=== PATIENT | female | born 1965 | race Caucasian/White ===

== ENCOUNTER 2019-09-13 13:48 | Observation (INO) ==
--- NOTE | 2019-09-13 13:51 | Emergency Department Note ---
ED Disposition Clinical Impression: Unstable angina Disposition: Admitted as Observation Condition on Discharge: Fair - Critical Care Critical Care Time: No Attestation: On , the high probability of a clinically significant, sudden or life threatening deterioration of the following system(s) required my full and direct attention, intervention and personal management. The time I documented below is in addition to time spent performing reported procedures but includes the following listed in this critical care notation. Medical Decision Making - Sebastián Inquiry Pt receiving controlled substance: No Vital Signs: 09/13/19 13:48 Temperature 98.2 F Temperature Source Oral Pulse Rate [Right Brachial] 87 Respiratory Rate 16 Blood Pressure [Right Arm] 123/78 Blood Pressure Mean [Right Arm] 93 Blood Pressure Source [Right Arm] Automatic Cuff Blood Pressure Position [Right Arm] Sitting 02 Sat by Pulse Oximetry 98 Oxygen Delivery Method Room Air - Lab Data Lab Results 09/13/19 13:52: WBC 7.4, RBC 5.13, Hgb 15.6, Hct 47.9 H, MCV 93.3, MCH 30.4, MCHC 32.6, RDW 12.6, Plt Count 453 H, MPV 8.1, Neut % (Auto) 63.5, Lymph % (Auto) 28.7, [place] % (Auto) 4.6, Eos % (Auto) 2.4, Baso % (Auto) 0.6, Neut # (Auto) 4.7, Lymph # (Auto) 2.1, [place] # (Auto) 0.3, Eos # (Auto) 0.2, Baso # (Auto) 0.1 09/13/19 13:52: Sodium 141, Potassium 3.5, Chloride 102, Carbon Dioxide 28, Anion Gap 14.5, BUN 7, Creatinine 0.82, Estimated Creat Clear 70, Estimated GFR 73, Est GFR ( Amer) 88, Glucose 103, Calcium 9.1, Troponin I 0.02 Result diagrams: 09/13/19 13:52 09/13/19 13:52 Orders (Tests/Meds): ED MEDICATIONS Generic Name Dose Route Start Last Admin Trade Name Freq PRN Reason Stop Dose Admin Fentanyl Citrate 50 mcg 09/13/19 14:07 Fentanyl 100mcg/2ml Vial IV 09/14/19 14:08 Q3MINP PRN Moderate to Severe Pain Fentanyl Citrate 25 mcg 09/13/19 14:07 Fentanyl 100mcg/2ml Vial IV 09/14/19 14:08 Q3MINP PRN Moderate to Severe Pain Flumazenil 0.2 mg 09/13/19 14:07 Romazicon 0.1mg/Ml 5ml Vial IV 09/13/19 23:00 NEEDED PRN Sedation Heparin Sodium (Porcine) 10,000 unit 09/13/19 14:07 Heparin 1,000 Units/Ml 10ml Vial (Patient Care Representative) IV 09/13/19 18:08 NEEDED PRN Emergency Box Soap Chipper Sodium Chloride 1,000 mls @ 25 mls/hr 09/13/19 14:15 Sod Chlor 0.9% 1000ml Bag IV 09/14/19 14:08 .Q25H JERRICA Midazolam HCl 1 mg 09/13/19 14:07 Midazolam 2mg/2ml Vial IV 09/14/19 14:08 Q3MINP PRN Sedation Midazolam HCl 1 mg 09/13/19 14:07 Midazolam 1mg/Ml 5ml Vial IV 09/14/19 14:08 Q3MINP PRN Sedation Naloxone HCl 0.4 mg 09/13/19 14:07 Narcan 0.4mg/Ml Vial IV 09/14/19 14:08 Q5MINP PRN Decreased Respirations Nitroglycerin 800 mcg 09/13/19 14:07 Nitroglycerin 800mcg/8ml Syr (Patient Care Representative) IV 09/14/19 14:08 NEEDED PRN Emergency Box Soap Chipper Discontinued Medications Generic Name Dose Route Start Last Admin Trade Name Freq PRN Reason Stop Dose Admin Diphenhydramine HCl 50 mg 09/13/19 14:07 Benadryl 50mg/1ml Vial IV 09/13/19 14:08 ONCE ONE Heparin Sodium/Sodium Chloride 3,000 unit 09/13/19 14:07 Heparin 1000 Units/500ml Ns (Patient Care Representative) IV 09/13/19 14:08 ONCE ONE Lidocaine HCl 20 ml 09/13/19 14:07 Lidocaine 1% 10ml Mdv IJ 09/13/19 14:08 ONCE ONE Lidocaine HCl 20 ml 09/13/19 14:07 Lidocaine 1% 5ml Pf Vial IJ 09/13/19 14:08 ONCE ONE Nitroglycerin 1 gm 09/13/19 13:55 09/13/19 13:59 Nitroglycerin 1 Inch Oint Udp TD 09/13/19 13:56 1 gm ONCE ONE Administration Verapamil HCl 2.5 mg 09/13/19 14:07 Verapamil 2.5mg/Ml 2ml Vial IV 09/13/19 14:08 ONCE ONE ORDERS Category Date Time Status Troponin I Q3H Lab 09/13/19 17:00 Ordered Troponin I Q3H Lab 09/13/19 20:00 Ordered - ECG Data Tracing #1 EKG interpreted by Riley Blevins MD: Rhythm: sinus Rate: 72 [place]: normal Ectopy: none Conduction: normal ST Segment Changes: none T Wave Changes: Inverted inferior, anterior, and lateral Q Waves: none No evidence of acute ischemia or injury Baseline artifact and wander present, but I consider the EKG adequate for accurate interpretation. - Physician Consults Physician Consulted: Lamin Time: 14:44 Reason -: Admission Comment/Response: Agrees to admit the patient to the hospital. We discussed the patient's clinical information, including history, exam, laboratory and radio logy results and ED course. Per hospital procedure, I will write temporary bridge inpatient orders on the patient. Specific orders requested by the admitting physician: Per cardiology - KELSIE Score for Non-Stemi Age of Patient: 50-59 years old Heart Rate: 70-89 bpm Systolic Blood Pressure: 120-139 mmhg CHF Killip Class: I-No CHF General Adult HPI - General Stated complaint: Chest Pain Time Seen by Provider: 09/13/19 13:50 - History of Present Illness HPI narrative: The patient is brought over by ITZEL Manning, for Dr. Wilson from the office. She was being seen there for her initial visit for a cardiology consultation today. She was having chest pain when she arrived. An EKG showed inverted T waves diffusely. She is being brought to the emergency department for evaluation and the plan is that she will go to the Patient Care Representative today for a cardiac cath. Her chest pain has now resolved. Nitroglycerin was given in the office. Aspirin has been administered. Hosea requests Nitropaste. She says she has been having chest pains off and on for 3 months. She gets a few a day. They usually last about 20 minutes. Usually brought on by activity and relieved by laying over the bed and taking deep breaths. She gets short of breath. She has chronic nausea, no change with the pain. No radiation. No diaphoresis. She does not have any known heart disease. She is a smoker and has a family history of heart disease. Says she has low blood sugar, no hypertension or hyperlipidemia to her knowledge. - Related Data Home Medications Medication Instructions Recorded Confirmed albuterol sulfate 90 mcg/actuation 1 inh INHALATION Q4-6H PRN 09/13/19 09/13/19 breath activated powder inhaler metoclopramide 5 mg tablet 5 mg PO QAC 09/13/19 09/13/19 omeprazole 40 mg capsule,delayed 40 mg PO DAILY 09/13/19 09/13/19 release ondansetron 4 mg disintegrating 4 mg PO Q8H 09/13/19 09/13/19 tablet ondansetron HCl 4 mg tablet 4 mg PO TID PRN 09/13/19 09/13/19 oxycodone-acetaminophen 7.5 mg-325 1 tab PO Q6H PRN 09/13/19 09/13/19 mg tablet pantoprazole 40 mg tablet,delayed 40 mg PO DAILY 09/13/19 09/13/19 release tizanidine 4 mg capsule 4 mg PO Q8H PRN 09/13/19 09/13/19 Allergies Allergy/AdvReac Type Severity Reaction Status Date / Time No Known Allergies Allergy Verified 09/13/19 13:21 [facility] History - Hepatitis A Screen Attestation statement:: This patient has been screened for Hepatitis A risk factors. I have reviewed the patient's past medical history: Yes - Social History Smoking Status: Current every day smoker # Packs/Day (cigarettes): 1 Alcohol Intake: never Occupational Status: disabled ROS Obtained: Yes All systems reviewed & no additional complaints - Constitutional Constitutional: Denies fever(s) - Cardiovascular Cardiovascular: Reports chest pain - Respiratory Respiratory: Yes dyspnea, Yes dyspnea on exertion - Gastrointestinal Gastrointestingal: Reports: nausea. Denies: vomiting Physical Exam - General General appearance: alert, in no apparent distress - Head Head exam: atraumatic, normocephalic - Eye Eye exam: Present: normal appearance, EOMI - ENT ENT exam: Present: mucous membranes moist - Neck Neck exam: Present: normal inspection, trachea midline - Chest Chest inspection: Present: normal inspection, symmetric chest wall rise - Respiratory Respiratory exam: Present: normal lung sounds bilaterally. Absent: respiratory distress - Cardiovascular Cardiovascular exam: Present: regular rate, normal rhythm, normal heart sounds - Abdominal Exam Abdominal exam: Present: soft. Absent: distention, tenderness - Extremities Exam Extremities exam: Present: normal inspection - Neurological Exam Neurological exam: Present: alert, oriented X3 - Psychiatric Psychiatric exam: Present: normal affect, normal mood - Skin Skin exam: Present: warm, dry
[2019-09-13 14:05] LABS: Basophils # 0.1 K/mm3 (0-0.2); Basophils % 0.6 % (0.1-2.0); Eosinophils # 0.2 K/mm3 (0.0-0.4); Eosinophils % 2.4 % (0.1-12.0); Hematocrit 47.9 % (37.0-47.0); Hemoglobin 15.6 g/dL (12.2-16.2); Lymphocytes # 2.1 K/mm3 (0.7-4.5); Lymphocytes % 28.7 % (10-50); Mean Corpuscular HGB Conc 32.6 g/dL (31.8-35.4); Mean Corpuscular Volume 93.3 fl (81-99); Mean Platelet Volume 8.1 fl (7.4-10.4); Monocytes # 0.3 K/mm3 (0.1-1.0); Monocytes % 4.6 % (1.7-9.3); Neutrophils # 4.7 K/mm3 (1.8-7.8); Neutrophils % 63.5 % (37.0-80.0); Platelet Count 453 K/mm3 (142-424); Red Blood Count 5.13 M/mm3 (4.20-5.40); Red Cell Distribution Width 12.6 % (11.5-17.5); White Blood Count 7.4 K/mm3 (4.8-10.8)
--- NOTE | 2019-09-13 14:06 | Consult Report ---
History of Present Illness Consult date: 09/13/19 Consult reason: chest pain Chief complaint: Chest pain Additional Medical History:: 1. Diabetes mellitus, type II since 1984 2. Tobacco use, 0.5 ppd 3. GERD History of present illness: 54-year-old white female seen in the office today for progressive chest pain over the last 3 months. Patient was noted to have markedly abnormal EKG with ongoing chest pain at the time of the visit and was given nitroglycerin sublingual, aspirin and transported to the ER for stabilization. Patient was noted to have relief of chest pain from the nitroglycerin sublingual in the ER and improvement in EKG changes in the ER as well. Plan was to take her to the cardiac Personal Financial Counselor for urgent catheterization. [facility] History *Have you ever received a pneumonia vaccine?: No *Have you received a flu vaccine this season?: No - *Social History Smoking Status: Current every day smoker # Packs/Day (cigarettes): 1 Alcohol Intake: never *Occupational Status:: disabled *Travel in the last 8 weeks: Inside the [place] [facility] Family Hx:: Unable to obtain Meds Home Medications Medication Instructions Recorded Confirmed Type albuterol sulfate 90 mcg/actuation 1 inh INHALATION Q4-6H PRN 09/13/19 09/13/19 History breath activated powder inhaler metoclopramide 5 mg tablet 5 mg PO QAC 09/13/19 09/13/19 History omeprazole 40 mg capsule,delayed 40 mg PO DAILY 09/13/19 09/13/19 History release ondansetron 4 mg disintegrating 4 mg PO Q8H 09/13/19 09/13/19 History tablet ondansetron HCl 4 mg tablet 4 mg PO TID PRN 09/13/19 09/13/19 History oxycodone-acetaminophen 7.5 mg-325 1 tab PO Q6H PRN 09/13/19 09/13/19 History mg tablet pantoprazole 40 mg tablet,delayed 40 mg PO DAILY 09/13/19 09/13/19 History release tizanidine 4 mg capsule 4 mg PO Q8H PRN 09/13/19 09/13/19 History Allergies Allergy/AdvReac Type Severity Reaction Status Date / Time No Known Allergies Allergy Verified 09/13/19 13:21 Review of Systems - Review of Systems Review of systems:: pertinent systems reviewed and negative unless documented below - *Cardiovascular Reports chest pain, Reports chest pain at rest, Reports chest pain with activity, Reports shortness of breath with activity - *Respiratory Reports shortness of breath with activity - *Gastrointestinal Denies abdominal pain, Denies nausea, Denies vomiting - *Genitourinary Denies blood in urine - *Musculoskeletal Denies joint pain, Denies back pain - *Neurologic Denies fainting, Denies tingling Exam Vital signs and Labs for Last 24 Hours: Temp Pulse Resp BP Pulse Ox 98.2 F 87 16 123/78 98 09/13/19 13:48 09/13/19 13:48 09/13/19 13:48 09/13/19 13:48 09/13/19 13:48 I & O for Last 24 hours: Intake & Output 09/11/19 09/12/19 09/13/19 09/14/19 11:59 11:59 11:59 11:59 Weight 124 lb - *Routine HEENT Exam Head: Present: normocephalic Eye: Present: EOMI, PERRL ENT: Present: mucous membranes moist - *Routine Neck Exam Present: supple. Absent: JVD, carotid bruit - *Routine Respiratory Exam Present: CTA bilaterally. Absent: accessory muscle use, rales, rhonchi, wheezes - *Routine Cardiovascular Exam Present: RRR. Absent: murmur, gallop, rubs - *Routine Abdominal Exam Present: soft. Absent: tenderness, distended, guarding - *Routine Extremities Exam Absent: edema, calf tenderness - *Routine Neurological Exam Present: alert, oriented X3, moving all extremities Assessment and Plan (1) Acute coronary syndrome Current visit: No Status: Acute Category: Medical Code(s): I24.9 - Acute ischemic heart disease, unspecified (2) Diabetes mellitus type 2 in nonobese Current visit: No Status: Acute Category: Medical Code(s): E11.9 - Type 2 diabetes mellitus without complications (3) Tobacco use Current visit: No Status: Acute Category: Medical Code(s): Z72.0 - Tobacco use - Assessment and plan all Dx Assessment and Plan for all problems:: 1. Patient was taken from the office to the ER for stabilization prior to trans portation to the Personal Financial Counselor. Patient was given 1 sublingual nitroglycerin prior to being taken to the ER with improvement in chest discomfort and EKG. EKG initially showed T wave inversion inferiorly and anterolaterally. EKG repeated in the ER shows resolution of inferior EKG changes. Labs pending at this time. This case was discussed with Dr. Wilson who is on his way in to cath the patient. 2. We will obtain an echocardiogram post cardiac catheterization 3. Further recommendations to follow pending above results
--- NOTE | 2019-09-13 14:10 | Electrocardiograph Report ---
APPROVED REPORT Exam: Resting ECG HR:72 bpm ECG Measurements Heart Rate 72 AXES AK 108 P 27 QRSd 70 QRS 70 QT 426 T143 QTc 466 <Conclusion> Sinus rhythm with short AK ST & T wave abnormality, consider inferior ischemia ST & T wave abnormality, consider anterolateral ischemia Prolonged QT Abnormal ECG Electronically signed by : Delon Esteban, 09/13/2019 14:09:31
[2019-09-13 14:26] LABS: Anion Gap 14.5 mEq/L (5-15); Calcium 9.1 mg/dL (8.5-10.1)
--- NOTE | 2019-09-13 21:02 | History & Physical Report ---
*Admission Date: 09/13/19 *Chief complaint: chest pain *History of present illness: this wf was seeing card and had chest pain and was sent to the ed and admitted for unstable angina for cath and admit - he patient is brought over by ITZEL Manning, for Dr. Wilson from the office. She was being seen there for her initial visit for a cardiology consultation today. She was having chest pain when she arrived. An EKG showed inverted T waves diffusely. She is being brought to the emergency department for evaluation and the plan is that she will go to the Health Safety Specialist today for a cardiac cath. Her chest pain has now resolved. Nitroglycerin was given in the office. Aspirin has been administered. Hosea jessica quests Nitropaste. She says she has been having chest pains off and on for 3 months. She gets a few a day. They usually last about 20 minutes. Usually brought on by activity and relieved by laying over the bed and taking deep breaths. She gets short of breath. She has chronic nausea, no change with the pain. No radiation. No diaphoresis. She does not have any known heart disease. She is a smoker and has a family history of heart disease. Says she has low blood sugar, no hypertension or hyperlipidemia to her knowledge. [facility] History I have reviewed the patient's past medical history: Yes Medical History: Reports:: Coronary Artery Disease, Diabetes Mellitus Type 2, Palpitations Denies:: Cancer, MRSA *Have you ever received a pneumonia vaccine?: No (refuses) *Have you received a flu vaccine this season?: No (refuses) Other Surgeries: Yes: Cardiac Catheterization, Cholecystectomy, Hysterectomy- Total Amputation: No Fractures: No - *Social History Smoking Status: Current every day smoker Tobacco Type: cigarettes # Packs/Day (cigarettes): 1 Alcohol Intake: never *Occupational Status:: disabled Housing: house Household Members: none *Travel in the last 8 weeks: Inside the [place] Family Hx:: Unable to obtain Review of Systems - Review of Systems Review of systems:: pertinent systems reviewed and negative unless documented below - Constitutional Denies fever(s) - Eyes Denies change in vision - ENT Denies sore throat - *Cardiovascular Reports chest pain at rest, Reports shortness of breath - *Respiratory Denies cough - *Gastrointestinal Denies abdominal pain - *Genitourinary Denies blood in urine - *Musculoskeletal Denies joint pain - Integumentary/Breasts Denies rash - *Neurologic Denies frequent falls, Denies fainting, Denies tingling - Psychiatric Reports anxiety Meds Home Medications Medication Instructions Recorded Confirmed Type albuterol sulfate 90 mcg/actuation 1 inh INHALATION Q4-6H PRN 09/13/19 09/13/19 History breath activated powder inhaler metoclopramide 5 mg tablet 5 mg PO AC 09/13/19 09/14/19 History ondansetron HCl 4 mg tablet 4 mg PO TID PRN 09/13/19 09/13/19 History oxycodone-acetaminophen 7.5 mg-325 1 tab PO Q6H PRN 09/13/19 09/13/19 History mg tablet pantoprazole 40 mg tablet,delayed 40 mg PO DAILY 09/13/19 09/13/19 History release tizanidine 4 mg capsule 4 mg PO Q8H PRN 09/13/19 09/13/19 History Allergies Allergy/AdvReac Type Severity Reaction Status Date / Time No Known Allergies Allergy Verified 09/13/19 13:21 Exam Vital signs and Labs for Last 24 Hours: Temp Pulse Resp BP Pulse Ox 98.1 F 66 17 181/74 H 97 09/13/19 14:56 09/13/19 18:48 09/13/19 18:48 09/13/19 18:48 09/13/19 19:58 Laboratory Results - last 24 hr 09/13/19 13:52: WBC 7.4, RBC 5.13, Hgb 15.6, Hct 47.9 H, MCV 93.3, MCH 30.4, MCHC 32.6, RDW 12.6, Plt Count 453 H, MPV 8.1, Neut % (Auto) 63.5, Lymph % (Auto) 28.7, [place] % (Auto) 4.6, Eos % (Auto) 2.4, Baso % (Auto) 0.6, Neut # (Auto) 4.7, Lymph # (Auto) 2.1, [place] # (Auto) 0.3, Eos # (Auto) 0.2, Baso # (Auto) 0.1 09/13/19 13:52: Sodium 141, Potassium 3.5, Chloride 102, Carbon Dioxide 28, Anion Gap 14.5, BUN 7, Creatinine 0.82, Estimated Creat Clear 70, Estimated GFR 73, Est GFR ( Amer) 88, Glucose 103, Calcium 9.1, Troponin I 0.02 09/13/19 16:18: Activated Clotting Time 395 H* I & O for Last 24 hours: Intake & Output 09/11/19 09/12/19 09/13/19 09/14/19 11:59 11:59 11:59 11:59 Intake Total 120 / 120 Balance 120 / 120 Weight 123 lb 15.808 oz - Constitutional no acute distress - *Routine HEENT Exam Head: Present: normocephalic Eye: Present: EOMI, PERRL ENT: Present: mucous membranes dry - *Routine Neck Exam Absent: JVD - *Routine Respiratory Exam Present: rhonchi - *Routine Cardiovascular Exam Present: RRR, murmur, S4 - *Routine Abdominal Exam Present: soft - *Routine Extremities Exam Absent: calf tenderness - *Routine Skin Exam Present: intact - *Routine Neurological Exam Present: alert, oriented X3, CN II-XII intact - Routine Psychiatric Exam Present: unable to assess Assessment and Plan (1) Acute coronary syndrome Current visit: No Status: Acute Category: Medical Code(s): I24.9 - Acute ischemic heart disease, unspecified (2) Diabetes mellitus type 2 in nonobese Current visit: No Status: Acute Category: Medical Code(s): E11.9 - Type 2 diabetes mellitus without complications (3) Tobacco use Current visit: No Status: Acute Category: Medical Code(s): Z72.0 - Tobacco use
[2019-09-14 06:26] LABS: Basophils # 0.1 K/mm3 (0-0.2); Monocytes # 0.5 K/mm3 (0.1-1.0); Neutrophils # 5.1 K/mm3 (1.8-7.8)
[2019-09-14 06:41] LABS: Eosinophils # 0.2 K/mm3 (0.0-0.4); Eosinophils % 1.9 % (0.1-12.0); Hematocrit 40.7 % (37.0-47.0); Lymphocytes # 2.4 K/mm3 (0.7-4.5); Lymphocytes % 29.4 % (10-50); Mean Corpuscular HGB Conc 31.9 g/dL (31.8-35.4); Mean Corpuscular Volume 94.3 fl (81-99); Mean Platelet Volume 8.2 fl (7.4-10.4); Monocytes % 5.9 % (1.7-9.3); Neutrophils % 61.8 % (37.0-80.0); Platelet Count 357 K/mm3 (142-424); Red Blood Count 4.32 M/mm3 (4.20-5.40); Red Cell Distribution Width 12.6 % (11.5-17.5); White Blood Count 8.2 K/mm3 (4.8-10.8)
[2019-09-14 06:50] LABS: Anion Gap 13.5 mEq/L (5-15); Calcium 8.2 mg/dL (8.5-10.1)
--- NOTE | 2019-09-14 08:21 | Pharmacy Consult Notes ---
[facility] Pharmacy VTE Monitoring - Patient Demographics Admission date: 09/13/19 Report Date: 09/14/19 Time: 08:20 Allergies/Adverse Reactions: Patient Allergies No Known Allergies Allergy (Verified 09/13/19 13:21) Height: 1.52 m Weight: 59.08 kg Patient Problems: Current Active Problems Unstable angina (Acute) - VTE Risk Labs: VTE Related Lab Results Hgb 13.0 g/dL (12.2-16.2) D 09/14/19 05:07 Hct 40.7 % (37.0-47.0) 09/14/19 05:07 Plt Count 357 K/mm3 (142-424) 09/14/19 05:07 BUN 12 mg/dL (7-18) D 09/14/19 05:07 Creatinine 0.70 mg/dL (0.55-1.02) 09/14/19 05:07 Estimated Creat Clear 87 mL/min (50-200) 09/14/19 05:07 Was VTE Risk Assessment Performed: Yes VTE Score: 1 VTE Risk Level: Very Low Risk - Prophylaxis VTE Prophylaxis Ordered?: Yes Types of VTE Prophylaxis: TEDS Knee High, Pharmacological Location of Applied Device: Bilateral Lower Extremeties Pharmacologic Type: Other (BRILINTA) - VTE Diagnosis Confirmed Treatment or plan recommended: Continue Current Treatment
--- NOTE | 2019-09-14 09:13 | Progress Note ---
Subjective Date: 09/14/19 Time: 09:07 Principal diagnosis: ACS Interval history: 54 yo WF in bed in NAD. No chest pain C/o back pain and leg pain (chronic) Exam Vital signs and Labs for Last 24 Hours: Temp Pulse Resp BP Pulse Ox 98.3 F 63 18 111/54 L 97 09/14/19 08:00 09/14/19 07:01 09/14/19 07:01 09/14/19 07:01 09/14/19 07:01 Laboratory Results - last 24 hr 09/13/19 13:52: WBC 7.4, RBC 5.13, Hgb 15.6, Hct 47.9 H, MCV 93.3, MCH 30.4, MCHC 32.6, RDW 12.6, Plt Count 453 H, MPV 8.1, Neut % (Auto) 63.5, Lymph % (Auto) 28.7, [place] % (Auto) 4.6, Eos % (Auto) 2.4, Baso % (Auto) 0.6, Neut # (Auto) 4.7, Lymph # (Auto) 2.1, [place] # (Auto) 0.3, Eos # (Auto) 0.2, Baso # (Auto) 0.1 09/13/19 13:52: Sodium 141, Potassium 3.5, Chloride 102, Carbon Dioxide 28, Anion Gap 14.5, BUN 7, Creatinine 0.82, Estimated Creat Clear 70, Estimated GFR 73, Est GFR ( Amer) 88, Glucose 103, Calcium 9.1, Troponin I 0.02 09/13/19 16:18: Activated Clotting Time 395 H* 09/14/19 05:07: WBC 8.2, RBC 4.32, Hgb 13.0 D, Hct 40.7, MCV 94.3, MCH 30.1, MCHC 31.9, RDW 12.6, Plt Count 357, MPV 8.2, Neut % (Auto) 61.8, Lymph % (Auto) 29.4, [place] % (Auto) 5.9, Eos % (Auto) 1.9, Baso % (Auto) 1.0, Neut # (Auto) 5.1, Lymph # (Auto) 2.4, [place] # (Auto) 0.5, Eos # (Auto) 0.2, Baso # (Auto) 0.1 09/14/19 05:07: Sodium 141, Potassium 3.5, Chloride 104, Carbon Dioxide 27, Anion Gap 13.5, BUN 12 D, Creatinine 0.70, Estimated Creat Clear 87, Estimated GFR 88, Est GFR ( Amer) 106 D, Glucose 100, Calcium 8.2 L 09/14/19 06:25: POC Glucose 135 H I & O for Last 24 hours: Intake & Output 09/11/19 09/12/19 09/13/19 09/14/19 11:59 11:59 11:59 11:59 Intake Total 480 / 480 Output Total 300 / 300 Balance 180 / 180 Weight 130 lb 4 oz - *Routine Respiratory Exam Present: CTA bilaterally. Absent: accessory muscle use, rales, rhonchi, wheezes - *Routine Cardiovascular Exam Present: RRR. Absent: murmur, gallop, rubs - *Routine Extremities Exam Absent: edema, calf tenderness Progress Note: A&P (1) Acute coronary syndrome Status: Acute Current Visit: No (2) Diabetes mellitus type 2 in nonobese Status: Acute Current Visit: No (3) Tobacco use Status: Acute Current Visit: No Assessment and Plan for All Diagnoses:: 1. ACS, s/p ANJUM to prox LAD, on ASA 81 mg daily and Brilinta 90 mg BID. No beta larisa or TEJAL/ARB at this time due to low BP. 2. HLD, on atorvastatin 40 mg daily 3. Tobacco use, cessation advised 4. History of DM type 2, on no meds per patient 5. Transportation issues will be an issue for follow up (coming from [place], [place]). 6. OK for discharge home from Cardiology standpoint. Follow up in one week in our office.
--- NOTE | 2019-09-14 12:30 | Discharge Summary ---
General - General Admission date:: 09/13/19 Discharge date: 09/14/19 HPI HPI: this wf was seeing card and had chest pain and was sent to the ed and admitted for unstable angina for cath and admit - he patient is brought over by ITZEL Manning, for Dr. Wilson from the office. She was being seen there for her initial visit for a cardiology consultation today. She was having chest pain when she arrived. An EKG showed inverted T waves diffusely. She is being brought to the emergency department for evaluation and the plan is that she will go to the [facility] today for a cardiac cath. Her chest pain has now resolved. Nitroglycerin was given in the office. Aspirin has been administered. Hosea requests Nitropaste. She says she has been having chest pains off and on for 3 months. She gets a few a day. They usually last about 20 minutes. Usually brought on by activity and relieved by laying over the bed and taking deep breaths. She gets short of breath. She has chronic nausea, no change with the pain. No radiation. No diaphoresis. She does not have any known heart disease. She is a smoker and has a family history of heart disease. Says she has low blood sugar, no hypertension or hyperlipidemia to her knowledge. Hospital Course Hospital Course: pt was seen by johanny diaz Additional Medical History:: 1. Diabetes mellitus, type II since 1984 2. Tobacco use, 0.5 ppd 3. gerd 54-year-old white female seen in the office today for progressive chest pain over the last 3 months. Patient was noted to have markedly abnormal EKG with ongoing chest pain at the time of the visit and was given nitroglycerin sublingual, aspirin and transported to the ER for stabilization. Patient was noted to have relief of chest pain from the nitroglycerin sublingual in the ER and improvement in EKG changes in the ER as well. Plan was to take her to the cardiac [facility] for urgent catheterization. Patient was taken from the office to the ER for stabilization prior to transportation to the [facility]. Patient was given 1 sublingual nitroglycerin prior to being taken to the ER with improvement in chest discomfort and EKG. EKG initially showed T wave inversion inferiorly and anterolaterally. EKG repeated in the ER shows resolution of inferior EKG changes. Labs pending at this time. This case was discussed with Dr. Wilson who is on his way in to cath the patient. 2. We will obtain an echocardiogram post cardiac catheterization 3. Further recommendations to follow pending above results NGIOGRAPHIC RESULTS The left main artery Normal The left anterior descending artery Has a proximal complex 90% stenosis with remaining vessel normal The circumflex artery Nondominant normal The right coronary artery Dominant with mild proximal 10 to 20% stenoses The SANTIAGO ventriculogram reveals Normal 65% The left ventricular end-diastolic pressure 10 mmHg IMPRESSION Critical proximal LAD disease Successful stenting of the proximal LAD critical disease reduced to 0% with one drug-eluting stent Normal ejection fraction Normal left ventricular end-diastolic pressure PLAN 1. Brilinta 90 twice daily plus aspirin 81 mg a day for at least 6 months 2. LDL less than 55 3. Avoidance of tobacco products 4. Cardiac rehabilitation 5. Standard therapy for ischemic heart disease pt has been doing well CS, s/p ANJUM to prox LAD, on ASA 81 mg daily and Brilinta 90 mg BID. No beta larisa or TEJAL/ARB at this time due to low BP. 2. HLD, on atorvastatin 40 mg daily 3. Tobacco use, cessation advised 4. History of DM type 2, on no meds per patient 5. Transportation issues will be an issue for follow up (coming from [place], [place]). 6. OK for discharge home from Cardiology standpoint. Follow up in one week in our office. Objective Vital signs: Temp Pulse Resp BP Pulse Ox 98.2 F 57 L 20 121/61 96 09/14/19 11:57 09/14/19 09:00 09/14/19 09:00 09/14/19 09:00 09/14/19 09:00 no acute distress - *Routine HEENT Exam Head: Present: normocephalic Eye: Present: EOMI, PERRL ENT: Present: mucous membranes dry - *Routine Neck Exam Absent: JVD - *Routine Respiratory Exam Present: CTA bilaterally - *Routine Cardiovascular Exam Present: RRR, murmur, S4 - *Routine Abdominal Exam Present: soft - *Routine Extremities Exam Present: full ROM - *Routine Skin Exam Present: intact - *Routine Neurological Exam Present: alert, oriented X3, CN II-XII intact - Routine Psychiatric Exam Present: normal affect Results Labs on day of discharge: Labs from last 24 hours 09/14/19 09/14/19 09/14/19 06:25 05:07 05:07 WBC 8.2 RBC 4.32 Hgb 13.0 D Hct 40.7 MCV 94.3 MCH 30.1 MCHC 31.9 RDW 12.6 Plt Count 357 MPV 8.2 Neut % (Auto) 61.8 Lymph % (Auto) 29.4 Travis % (Auto) 5.9 Eos % (Auto) 1.9 Baso % (Auto) 1.0 Neut # (Auto) 5.1 Lymph # (Auto) 2.4 Travis # (Auto) 0.5 Eos # (Auto) 0.2 Baso # (Auto) 0.1 Activated Clotting Time Sodium 141 Potassium 3.5 Chloride 104 Carbon Dioxide 27 Anion Gap 13.5 BUN 12 D Creatinine 0.70 Estimated Creat Clear 87 Estimated GFR 88 Est GFR ( Amer) 106 D Glucose 100 POC Glucose 135 H Calcium 8.2 L Troponin I 09/13/19 09/13/19 09/13/19 16:18 13:52 13:52 WBC 7.4 RBC 5.13 Hgb 15.6 Hct 47.9 H MCV 93.3 MCH 30.4 MCHC 32.6 RDW 12.6 Plt Count 453 H MPV 8.1 Neut % (Auto) 63.5 Lymph % (Auto) 28.7 Travis % (Auto) 4.6 Eos % (Auto) 2.4 Baso % (Auto) 0.6 Neut # (Auto) 4.7 Lymph # (Auto) 2.1 Travis # (Auto) 0.3 Eos # (Auto) 0.2 Baso # (Auto) 0.1 Activated Clotting Time 395 H* Sodium 141 Potassium 3.5 Chloride 102 Carbon Dioxide 28 Anion Gap 14.5 BUN 7 Creatinine 0.82 Estimated Creat Clear 70 Estimated GFR 73 Est GFR ( Amer) 88 Glucose 103 POC Glucose Calcium 9.1 Troponin I 0.02 DS: Diagnosis - Discharge Diagnosis (1) Acute coronary syndrome Status: Acute (2) Diabetes mellitus type 2 in nonobese Status: Acute (3) Tobacco use Status: Acute Discharge Plan - Patient Discharge Instructions ACTIVITY: Continue current activity DIET: continue same diet Patient Instructions: Angina, Cardiac Catheterization, DI for Surgical Site Infection, Ticagrelor, DI for Prediabetes - Follow up Plan Follow up with: Raul Wilson MD [Staff Physician] - 09/26/19 11:00 am (CARDIAC REHAB WILL BE SCHEDULED IN [place]) Disposition: Home, Self-Shelter Medications: Home Medications Medication Instructions Recorded Confirmed Type albuterol sulfate 90 mcg/actuation 1 inh INHALATION Q4-6H PRN 09/13/19 09/13/19 History breath activated powder inhaler metoclopramide 5 mg tablet 5 mg PO AC 09/13/19 09/14/19 History ondansetron HCl 4 mg tablet 4 mg PO TID PRN 09/13/19 09/13/19 History oxycodone-acetaminophen 7.5 mg-325 1 tab PO Q6H PRN 09/13/19 09/13/19 History mg tablet pantoprazole 40 mg tablet,delayed 40 mg PO DAILY 09/13/19 09/13/19 History release tizanidine 4 mg capsule 4 mg PO Q8H PRN 09/13/19 09/13/19 History Aspirin [Aspirin 81mg EC Tab] 81 mg PO DAILY #30 tablet. 09/14/19 Rx Atorvastatin Calcium [Lipitor 40mg 40 mg PO HS #30 tab 09/14/19 Rx Tablet] Prescriptions/Medication Reconciliation: New Ticagrelor [Brilinta 90mg Tablet] 90 mg PO BID tablet Aspirin [Aspirin 81mg EC Tab] 81 mg PO DAILY #30 tablet. Atorvastatin Calcium [Lipitor 40mg Tablet] 40 mg PO HS #30 tab Continued oxycodone-acetaminophen 7.5 mg-325 mg tablet 1 tab PO Q6H PRN PRN Reason: Breakthru Moderate Pain ondansetron HCl 4 mg tablet 4 mg PO TID PRN PRN Reason: Nausea albuterol sulfate 90 mcg/actuation breath activated powder inhaler 1 inh INHALATION Q4-6H PRN PRN Reason: Shortness Of Breath pantoprazole 40 mg tablet,delayed release 40 mg PO DAILY tizanidine 4 mg capsule 4 mg PO Q8H PRN PRN Reason: Muscle Pain metoclopramide 5 mg tablet 5 mg PO AC - Problem Reconciliation Problems Reviewed?: Yes
== END 2019-09-14 15:36 | disposition home or self-care (01) ==
LOC: ICU 13:48 → ER 13:48 → ICU 14:57 → 2ND 16:12
PROVIDERS: ADMIT Emergency Medicine; ATTEND Emergency Medicine
CPT/HCPCS: 36415; 71010; 71045; 80048; 82962; 84484; 85025; 85347; 92928; 93005; 93458; 99152; 99284; C1725; C1769; C1876; C9600; G0378; J1644; Q9967